=== PATIENT | female | born 1995 | race Caucasian/White ===

== ENCOUNTER 2024-05-17 01:51 | Outpatient (CLI) | payer OTHER, SELFPAY ==
[2024-05-17 12:00] LABS: Panorama Kit Sent via Fed Ex
[2024-05-17 12:13] LABS: Abs Immature Grans 0.04 10^3/uL (0.0-0.06); Absolute Basophil Count 0.07 10^3/uL (0.0-0.2); Absolute Lymphocyte Count 1.66 10^3/uL (1.2-3.4); Absolute Monocyte Count 0.57 10^3/uL (0.1-0.8); Absolute Neutrophil Count 7.11 10^3/uL (1.2-6.7); Basophils % 0.7 %; HCT 40.6 % (36.0-46.0); HGB 14.2 g/dL (11.2-15.7); Immature Grans % 0.4 %; Lymphocytes % 17.4 %; MCH 30.7 pg (27.0-33.0); MCV 88 fL (80-95); MPV 9.7 fL (8.0-11.0); Neutrophils % 74.5 %; Platelet Count 274 10^3/uL (130-400); RBC 4.62 10^6/uL (3.93-5.22); RDW 11.4 % (11.7-14.6); RDW-SD 36.5 fL; WBC 9.55 10^3/uL (4.4-10.8)
[2024-05-17 18:42] LABS: Hepatitis B Surface Ag Negative (Negative)
[2024-05-17 22:08] LABS: Hepatitis C Ab w Rflx HCV PCR Negative (Negative)
[2024-05-17 22:11] LABS: HIV-1/2 Ag & Ab Screen Negative (Negative)
[2024-05-20 13:00] LABS: Rubella IgG Ab (UVM) Positive (See Note)
[2024-05-20 13:02] LABS: Varicella IgG Antibody Negative (See Note)
[2024-05-20 16:30] LABS: Syphilis IgG w/Reflex Nonreactive (Nonreactive)
[2024-05-24 15:48] LABS: Specimen WB Whole Blood
[2024-06-07 16:22] LABS: Specimen WB Whole Blood
== END 2024-05-17 01:52 | disposition home or self-care (01) ==
LOC: LBO 01:51
PROVIDERS: Visit Provider Advanced Practice Midwife
DX: E84.9 Cystic fibrosis, unspecified (principal)
CPT/HCPCS: 36415; 81220; 81222; 81329; 86787; 86803; 86850; 86900; 86901; 87340; 87389; 85025; 86762; 86780

== ENCOUNTER 2024-05-17 10:01 | Outpatient (REF) | payer OTHER, SELFPAY ==
--- NOTE | 2024-05-17 10:45 | PAPFT_PTH ---
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
[2024-05-17 12:47] LABS: *AMPHETAMINES SCREEN URINE Negative (Negative); *BARBITURATES SCREEN URINE Negative (Negative); *BENZODIAZEPINES SCREEN URINE Negative (Negative); Cannabinoids THC Negative (Negative); Cocaine Screen,Urine Negative (Negative); METHADONE URINE SCREEN Negative (Negative); OPIATES URINE SCREEN Negative (Negative)
[2024-05-17 12:48] LABS: Tricyclic Antidepressants Negative (Negative)
[2024-05-20 11:35] LABS: Fentanyl Scr w/Rfx Confirm Negative ng/mL (<1)
[2024-05-20 12:59] LABS: Chlamydia Result Negative (Negative); GC Result Negative (Negative)
[2024-05-23 14:25] LABS: Buprenorphine Negative ng/mL (Cutoff: 5.0); Norbuprenorphine Negative ng/mL (Cutoff: 2.5)
== END 2024-05-17 10:02 | disposition home or self-care (01) ==
LOC: LBN 10:01
PROVIDERS: Visit Provider Advanced Practice Midwife
DX: Z34.91 Encounter for supervision of normal pregnancy, unspecified, first trimester (principal); Z3A.11 11 weeks gestation of pregnancy
CPT/HCPCS: 36415; 80307; 80348; 81220; 81222; 81329; 86787; 86803; 86850; 86900; 86901; 87340; 87389; 87491; 87591; 88142; 85025; 86762; 86780; 87086; 87624

== ENCOUNTER 2024-06-14 17:42 | Outpatient (CLI) | payer OTHER, SELFPAY | END 2024-06-14 17:43 | disposition home or self-care (01) | LOC: LBO 17:44 | PROVIDERS: Visit Provider Advanced Practice Midwife | DX: Z34.02 Encounter for supervision of normal first pregnancy, second trimester (principal); Z3A.15 15 weeks gestation of pregnancy | CPT/HCPCS: 81403; 86850; 86870; 86880; 86900 ==

== ENCOUNTER 2024-08-20 15:08 | Outpatient (CLI) | payer OTHER, SELFPAY ==
--- NOTE | 2024-08-20 15:00 | RT.EKG_ITS ---
APPROVED REPORT Exam: Resting ECG Reason for Exam: episodes of chest tightness at night, Patient Location: O HR:72 bpm ECG Measurements Heart Rate 72 AXIS IA 141 P 56 QRSd 94 QRS 69 QT 390 T 20 QTc 427 Conclusion Sinus rhythm...normal P axis, V-rate 50- 99 Normal Electrocardiogram
== END 2024-08-20 15:09 | disposition home or self-care (01) ==
LOC: CARDOPNVT 15:08
PROVIDERS: PCP Internal Medicine; Visit Provider Advanced Practice Midwife
DX: R07.9 Chest pain, unspecified (principal)
CPT/HCPCS: 93005; 93010

== ENCOUNTER 2024-09-11 04:38 | Outpatient (CLI) | payer OTHER, SELFPAY ==
[2024-09-11 09:33] LABS: HCT 36.6 % (36.0-46.0); HGB 12.5 g/dL (11.2-15.7); MCH 31.3 pg (27.0-33.0); MCHC 34.2 % (32.0-36.0); MCV 92 fL (80-95); MPV 9.4 fL (8.0-11.0); Platelet Count 208 10^3/uL (130-400); RDW 12.7 % (11.7-14.6); RDW-SD 42.2 fL; WBC 11.47 10^3/uL (4.4-10.8)
[2024-09-11 10:15] LABS: Glucose,1 Hr (Glucola) 87 mg/dL (80-140)
== END 2024-09-11 04:39 | disposition home or self-care (01) ==
LOC: LBO 04:38
PROVIDERS: PCP Internal Medicine; Visit Provider Advanced Practice Midwife
DX: Z34.92 Encounter for supervision of normal pregnancy, unspecified, second trimester (principal)
CPT/HCPCS: 36415; 82950; 85027

== ENCOUNTER 2024-09-11 08:39 | Outpatient (REF) | payer OTHER, SELFPAY ==
[2024-09-11 10:50] LABS: *AMPHETAMINES SCREEN URINE Negative (Negative); *BARBITURATES SCREEN URINE Negative (Negative); *BENZODIAZEPINES SCREEN URINE Negative (Negative); Cannabinoids THC Negative (Negative); Cocaine Screen,Urine Negative (Negative); METHADONE URINE SCREEN Negative (Negative); OPIATES URINE SCREEN Negative (Negative)
[2024-09-11 10:52] LABS: Tricyclic Antidepressants Negative (Negative)
[2024-09-12 11:36] LABS: Fentanyl Scr w/Rfx Confirm Negative ng/mL (<1)
[2024-09-17 11:38] LABS: Buprenorphine Negative ng/mL (Cutoff: 5.0); Norbuprenorphine Negative ng/mL (Cutoff: 2.5)
== END 2024-09-11 08:40 | disposition home or self-care (01) ==
LOC: LBN 08:39
PROVIDERS: PCP Internal Medicine; Visit Provider Advanced Practice Midwife
DX: Z34.92 Encounter for supervision of normal pregnancy, unspecified, second trimester (principal)
CPT/HCPCS: 80307; 80348

== ENCOUNTER 2024-11-08 21:09 | Outpatient (REF) | payer OTHER, SELFPAY | END 2024-11-08 21:10 | disposition home or self-care (01) | LOC: LBN 21:09 | PROVIDERS: PCP Internal Medicine; Visit Provider Advanced Practice Midwife | DX: Z34.93 Encounter for supervision of normal pregnancy, unspecified, third trimester (principal); Z3A.36 36 weeks gestation of pregnancy | CPT/HCPCS: 87081 ==

== ENCOUNTER 2024-12-08 09:34 | Outpatient (CLI) | payer OTHER, SELFPAY ==
[2024-12-08 12:22] VITALS: BP 107/68; PULSE 64
[2024-12-08 12:27] VITALS: BP 107/68; PULSE 64; TEMP 36.6
--- NOTE | 2024-12-08 13:45 | W.OBNST ---
Date of service: 12/08/24 Time of Service: 13:45 NST Evaluation Reason for NST Reasons for Nonstress Test: POSTDATES Gestational Age Gestational Age in Weeks and Days: 40 Weeks and 6Days Test and Monitor Explained Test/Monitor Explained: Test Explained and Monitor Explained Vital Signs Blood Pressure: 107/68 Pulse: 64 Temperature: 97.9 F NST Information Date on Monitor: 12/08/24 Time on Monitor: 11:55 Date off Monitor: 12/08/24 Time off Monitor: 12:20 Total Time on Monitor: 25 NST Interventions: PO Hydration NST Evaluation Patient States Movement: Present FHR Baseline: 135 Variability: Moderate 6-25 bpm Accelerations: 15x15 Decelerations: None NST Results: Reactive Note Ultrasound Done: CARMELITA Indication: Other (postdates) Largest Vertical Pocket: 4 Total CARMELITA: 13.6 Other Pertinent Findings: Heart Rate (135), Presentation (cephalic, ROP) and Placental Location (anterior) Coding for CARMELITA w/NST: Completed Exam. NST Note Note: cvx closed/50%, posterior, firm/medium, intact membranes, vtx -4 Pt scheduled cervical ripening for 12/09 evening Will call 1 hr ahead to assure a bed, NST Reviewed and Verified by: Neda Mejia
[2024-12-08 13:47] VITALS: BP 107/68; PULSE 64; TEMP 36.6
== END 2024-12-08 13:39 ==
LOC: BCD 09:35 → OBS 11:46
PROVIDERS: PCP Internal Medicine; Visit Provider Advanced Practice Midwife
DX: O48.0 Post-term pregnancy (principal); Z3A.40 40 weeks gestation of pregnancy
CPT/HCPCS: 59025